=== PATIENT | male | born 1995 | race African-American/Black ===

== ENCOUNTER 2025-03-05 10:46 | Emergency (ER) | payer MEDICAID, OTHER ==
[~2025-03-05] VITALS: Ht 182.9 cm; Wt 138.0 kg
[2025-03-05 11:21] VITALS: O2SAT 99
[2025-03-05] MEDS ORDERED: DOXY-461 MT (11:37)
[2025-03-05] MEDS: CEFTRIAXONE SODIUM 500MG VIAL IM ONE (11:57)
[2025-03-05 12:07] LABS: CLARITY URINE CLEAR (CLEAR); COLOR URINE YELLOW (YELLOW); GLUCOSE URINE NEGATIVE (NEGATIVE); KETONES URINE NEGATIVE (NEGATIVE); LEUKOCYTE ESTERASE URINE TRACE (NEGATIVE); NITRITE URINE NEGATIVE (NEGATIVE); OCCULT BLOOD URINE NEGATIVE (NEGATIVE); PH URINE 6.0 (4.5-8.0); PROTEIN URINE TRACE (NEGATIVE); SPECIFIC GRAVITY URINE 1.028 (1.005-1.030); UROBILINOGEN URINE 0.2 E.U./dL (0.2-1.0)
[2025-03-05 12:32] VITALS: BP 139/92; PULSE 84; RESP 16; TEMP 36.8; O2SAT 99
[2025-03-05 12:50] LABS: BACTERIA URINE TRACE; SQUAMOUS EPITHELIAL CELL URINE 1+ /lpf (RARE/1+)
[2025-03-05 12:51] LABS: RBC URINE NONE SEEN /hpf (0-2)
[2025-03-08 04:07] LABS: CHLAMYDIA TRACHOMATIS NAA Negative (Negative); NEISSERIA GONORRHOEAE NAA Negative (Negative)
== END 2025-03-05 12:33 | disposition home or self-care (01) ==
LOC: ER 10:46
DX: N28.89 Other specified disorders of kidney and ureter (principal); Z11.3 Encounter for screening for infections with a predominantly sexual mode of transmission
CPT/HCPCS: 99283; 86592; 87491; 87591; 81003; 36415; 96372; J0696